=== PATIENT | female | born 1955 | race Caucasian/White ===

== ENCOUNTER → 2016-12-25 | Outpatient (CLI) | payer BC, OTHER ==
[~2016-12-25] MED LIST: CETI10TA10 PO; DIPH25TA24 PO; TYL325X PO
--- NOTE | 2016-12-26 13:25 | MAMMOGRAPHY REPORT ---
BILATERAL DIGITAL SCREENING MAMMOGRAM WITH CAD: 12/25/2016 TECHNIQUE: Current study was also evaluated with a Computer Aided Detection (CAD) system. Bilatera l CC and MLO views were obtained. COMPARISON: Comparison is made to exams dated: 12/20/2015 mammogram, 12/14/2014 mammogram, 06/10/2012 mammogram, 06/05/2011 mammogram, 06/22/2013 mammogram, and 05/30/2010 mammogram - [facility]. BREAST COMPOSITION: The tissue of both breasts is heterogeneously dense, which may obscure small ma sses. FINDINGS: No suspicious masses, calcifications, or areas of architectural distortion are noted in e ither breast. There has been no significant interval change compared to prior exams. Scattered bilat eral benign-appearing calcifications are not significantly changed. IMPRESSION: ACR BI-RADS CATEGORY 2: BENIGN There is no mammographic evidence of malignancy. A 1 year screening mammogram is recommended. The p atient will receive written notification of the results. Approximately 10% of breast cancers are not detected with mammography. A negative mammographic repor t should not delay biopsy if a clinically suggestive mass is present. Allyn Del Toro M.D. ah/:12/26/2016 07:39:36 Construction Estimator: Tata MARTINEZ(Pravin)(Jovany), [facility] letter sent: Normal 1/2 BI-RADS Code: ACR BI-RADS Category 2: Benign
== END | disposition home or self-care (01) ==
LOC: C.MAMM 17:08
PROVIDERS: ATTEND Obstetrics & Gynecology
DX: Z12.31 Encounter for screening mammogram for malignant neoplasm of breast (principal)

== ENCOUNTER → 2017-07-16 | Outpatient (CLI) | payer BC, OTHER | END | disposition home or self-care (01) | LOC: C.PAPS 11:01 | PROVIDERS: ATTEND Obstetrics & Gynecology | DX: Z01.419 Encounter for gynecological examination (general) (routine) without abnormal findings (principal); Z78.0 Asymptomatic menopausal state ==

== ENCOUNTER → 2018-01-07 | Outpatient (CLI) | payer BC, OTHER ==
--- NOTE | 2018-01-08 15:14 | MAMMOGRAPHY REPORT ---
BILATERAL DIGITAL SCREENING MAMMOGRAM TOMOSYNTHESIS WITH CAD: 01/07/2018 CLINICAL HISTORY: Routine screening. Patient has no complaints. TECHNIQUE: Breast tomosynthesis in addition to standard 2D mammography was performed. Current study was also evaluated with a Computer Aided Detection (CAD) system. COMPARISON: Comparison is made to exams dated: 12/25/2016 mammogram, 12/20/2015 mammogram, 12/14/2014 ma mmogram, 06/22/2013 mammogram, 06/10/2012 mammogram, and 06/05/2011 mammogram - [facility] nter. BREAST COMPOSITION: The tissue of both breasts is heterogeneously dense, which may obscure small mas ses. FINDINGS: There is a partially circumscribed and partially obscured 10 mm mass seen within the left m edial breast at approximately 9 to 10:00, for which ultrasound and possible additional spot compressi on views are recommended for further evaluation. This may represent a cyst. The remainder of both breasts are stable compared to prior exams, without suspicious masses, calcific ations, or areas of architectural distortion noted. Scattered bilateral benign-appearing calcificati ons are not significantly changed. IMPRESSION: ACR BI-RADS CATEGORY 0: INCOMPLETE EVALUATION: NEED ADDITIONAL IMAGING EVALUATION Left breast mass, for which additional imaging evaluation is recommended. The patient will be called to schedule an appointment. Approximately 10% of breast cancers are not detected with mammography. A negative mammographic report should not delay biopsy if a clinically suggestive mass is present. Allyn Del Toro M.D. /:01/08/2018 14:42:22 Regional Cra: Kathy MARTINEZ(Pravin)(M), [facility] letter sent: Addl Imaging 0 BI-RADS Code: ACR BI-RADS Category 0: Incomplete Evaluation: Need Additional Imaging Evaluation
== END | disposition home or self-care (01) ==
LOC: C.MAMM 17:01
PROVIDERS: ATTEND Obstetrics & Gynecology
DX: Z12.31 Encounter for screening mammogram for malignant neoplasm of breast (principal); N63.20 Unspecified lump in the left breast, unspecified quadrant

== ENCOUNTER → 2018-01-21 | Outpatient (CLI) | payer BC, OTHER ==
--- NOTE | 2018-01-22 07:51 | MAMMOGRAPHY REPORT ---
ULTRASOUND OF LEFT BREAST: 01/21/2018 CLINICAL HISTORY: Callback from screening mammography for a 10 mm partially circumscribed mass in the medial left breast. Family history of breast cancer = sister. COMPARISON: Comparison is made to exams dated: 01/07/2018 mammogram, 12/25/2016 mammogram, 12/20/2015 ma mmogram, 12/14/2014 mammogram, 06/22/2013 mammogram, and 06/10/2012 mammogram - [facility] nter. FINDINGS: Real-time high resolution sonographic evaluation was performed in the left breast, with par ticular attention to the 9:0010:00 left breast in the area of partially circumscribed and obscured 1 0 mm mass. In the 10:00 left breast, 1 cm from the nipple, there is an oval parallel circumscribed h ypoechoic mass measuring 8.5 x 4.0 x 8.1 mm. This likely corresponds with the circumscribed mammogra phic mass and could represent a benign solid mass such as a fibroadenoma or a complicated cyst. Inci dental note is made of an anechoic benign simple cyst in the 10:00 left breast, 2 cm from the nipple, measuring 3.8 mm. There is an isoechoic mass with indistinct borders versus a prominent fat lobule in the 1:00 left breast, 1 cm from the nipple, measuring 9.5 x 4.1 x 6.1 mm, and another hypoechoic s olid versus cystic round mass in the 3:00 periareolar left breast measuring 4.6 x 3.8 x 6.3 mm. Give n the solid nature of the masses identified in the 1:00 and 3:00 periareolar left breast, definitive characterization with ultrasound-guided core needle biopsy is recommended. Pending benign pathology results, the oval circumscribed subcentimeter mass in the 10:00 left breast could be followed in 6 mo nths to ensure stability. IMPRESSION: ACR BI-RADS CATEGORY 4: SUSPICIOUS - FOLLOW-UP RECOMMENDED 1. Ultrasound-guided core biopsy is recommended for a solid 9.5 mm mass versus prominent fat lobule in the 1:00 left breast, 1 cm from the nipple, and for a hypoechoic 6 mm mass in the 3:00 periareolar left breast. 2. Pending benign pathology results, recommend a follow-up left diagnostic tomosynthesis mammogram a nd repeat targeted ultrasound in the 10:00 axis to ensure stability of an oval circumscribed 8.5 mm m ass which could represent a complicated cyst or benign fibroadenoma. These results and recommendations were discussed with the patient at the time of the exam. She tenta tively scheduled the left breast biopsies prior to leaving the department. Leena Pérez M.D. ay/:01/21/2018 11:58:25 Superintendent Construction: Dr. Leena Pérez, [facility] letter sent: Abnormal 4/5 BI-RADS Code: ACR BI-RADS Category 4: Suspicious
== END | disposition home or self-care (01) ==
LOC: C.MAMM 08:22
PROVIDERS: ATTEND Obstetrics & Gynecology
DX: N63.20 Unspecified lump in the left breast, unspecified quadrant (principal)

== ENCOUNTER → 2018-01-26 | Outpatient (CLI) | payer BC, OTHER ==
--- NOTE | 2018-01-26 13:22 | Discharge Instructions ---
Discharge Instructions Procedure Procedure Date: Jan 26, 2018. Reason for visit: Left Masses. Discharge Discharge Date: Jan 26, 2018. Discharge Diagnosis: post left breast ultrasound guided core biopsy x 2 Instructions Activity Recommendations: Additional Limitations (see below) Return to School/Work: no limitations Recommended Home Diet: No Limitations Provider Instructions: ACTIVITY RECOMMENDATIONS: * No lifting, pushing, pulling or exercising the affected side for three days. RETURN TO SCHOOL/WORK: * You may return to work/school after the procedure, but do not perform any strenuous activities for 24 to 48 hours. MEDICATIONS: * Tylenol (two 325 mg) every four to six hours if needed for mild pain (if not allergic to Tylenol). DIET: * Resume previous diet. SPECIAL CARE INSTRUCTIONS: * Keep biopsy site dry for 24 hours. May shower after 24 hours, but do not soak (bathe) incision. * May remove Tegaderm (plastic patch) tomorrow AFTER showering. * Leave the steri-strips on for one week. Allow the steri-strips to fall off by themselves. If not off after one week, you may remove them. You may place a Bandaid crosswise over the strips, if desired. * Apply ice 10 minutes on and 10 minutes off as needed. * Wear a bra at bedtime to sleep more comfortably for 2-3 days. * Your referring physician should have the results after approximately 5 to 7 business days. * Call for unusual bleeding, fever, drainage, etc or if you have any questions call [phone] during normal business hours or after hours call Dr Pérez, . FOLLOW UP VISIT: Follow-up with Referring Physician as scheduled. Allergies Coded Allergies: Cat Dander (Verified Allergy, Unknown, -, 04/25/14) Kateryna Holt Recommendations: Call your doctor if: * Temperature above 101 degrees * Pain not relieved by pain medicine ordered * There is increased drainage or redness from any incision * You have any unanswered questions or concerns. Your Doctors Instructions noted above were prepared by provider Leena Pérez. Patient Signature Section: Patient Instructions Signature Page Chetna Sun Patient (or Guardian) Signature/Date: I have read and understand the instructions given to me by my caregivers. Caregiver/RN/Doctor Signature/Date: The above-named patient and/or guardian has received patient instructions on this date. + Original Patient Signature Page (only) stays with chart. Please make copy for patient.
--- NOTE | 2018-01-27 07:46 | MAMMOGRAPHY REPORT ---
MULTIPLE ULTRASOUND GUIDED BIOPSIES LEFT BREAST: 01/26/2018 CLINICAL HISTORY: Indeterminate 9.5 mm isoechoic mass in the 1:00 left breast and 6 mm hypoechoic mas s in the 3:00 periareolar left breast. Patient presents for ultrasound-guided core biopsy 2. COMPARISON: Comparison is made to exams dated: 01/07/2018 mammogram, 01/21/2018 ultrasound, and 016 mammogram - [facility]. PATIENT CONSENT: The procedure, risks and benefits were discussed with the patient and informed conse nt was obtained both verbally and in writing. Specific risks to this procedure include: bleeding, in fection, puncture of adjacent structure, nontarget biopsy, sampling error, pain, metal allergy and me dication reaction. PROCEDURE DESCRIPTION: A time out was performed and the left breast was agreed as the site of biopsy . First repeat targeted ultrasound was performed in the left breast and the isoechoic 9.5 mm mass in the 1:00 left breast was again identified and targeted for biopsy. The skin was prepped and draped in the usual sterile fashion. Subcutaneous and intraparenchymal 1% buffered lidocaine, with and with out epinephrine, was administered as local anesthesia. A skin incision was made. Through the incisio n, for samples were taken with a 14 gauge Achieve biopsy device. A ribbon shaped metallic marker was placed at the biopsy site. Hemostasis was achieved after manual compression. The patient tolerated th e procedure well and there was no immediate complication. Second repeat targeted ultrasound was performed in the 3:00 periareolar left breast in the 6 mm hypoe choic mass was identified and targeted for biopsy. Additional 1% buffered lidocaine with and without epinephrine was administered as local anesthesia. A small skin incision was made. Through the inci brian, 5 core biopsy samples were obtained with a 14-gauge achieve biopsy device. A wing-shaped metal lic biopsy marker clip was placed at the site of this biopsy. Hemostasis was achieved after several minutes of manual compression. The patient tolerated the procedure well and there was no immediate c omplication. All of the samples were sent to the pathology department in appropriately labeled containers. Post procedure left CC and ML tomosynthesis images were obtained. No significant postbiopsy hematoma is seen in the left breast at 1:00 or 3:00. New metallic biopsy marker clips are seen in the 1:00 and 3:00/retroareolar left breast, at the sites of the biopsied masses identified on ultrasound. Pendin g benign pathology results, a short interval follow-up left diagnostic tomosynthesis mammogram and re peat targeted ultrasound is recommended to ensure stability of another benign-appearing circumscribed mass in the upper inner/10:00 left breast. IMPRESSION: ULTRASOUND GUIDED BIOPSY Status post ultrasound-guided core needle biopsy of indeterminate subcentimeter masses in the 1:00 an d 3:00 axes of the left breast, with biopsy markers placed at each site. Pending benign pathology results, a short interval follow-up left diagnostic tomosynthesis mammogram and repeat targeted ultrasound is recommended to ensure stability of another benign-appearing circums cribed mass in the upper inner/10:00 left breast. The patient will receive notification of the biopsy results from her referring physician. Leena Pérez M.D. ay/:01/26/2018 14:48:24 Junior Media Buyer: Kathy MARTINEZ(Pravin)(Jovany), [facility]
--- NOTE | 2018-01-27 07:46 | MAMMOGRAPHY REPORT ---
MULTIPLE ULTRASOUND GUIDED BIOPSIES LEFT BREAST: 01/26/2018 CLINICAL HISTORY: Indeterminate 9.5 mm isoechoic mass in the 1:00 left breast and 6 mm hypoechoic mas s in the 3:00 periareolar left breast. Patient presents for ultrasound-guided core biopsy 2. Please refer to the report from left breast ultrasound-guided core biopsy performed at the same time for full detail. IMPRESSION: ULTRASOUND GUIDED BIOPSY Please refer to the report from left breast ultrasound-guided core biopsy performed at the same time for full detail. Leena Pérez M.D. ay/:01/26/2018 13:26:05 Pipeline Integrity Engineer: Kathy MARTINEZ(Pravin)(M), [facility]
--- NOTE | 2018-01-27 07:48 | MAMMOGRAPHY REPORT ---
UNILATERAL LEFT DIGITAL DIAGNOSTIC MAMMOGRAM TOMOSYNTHESIS: 01/26/2018 CLINICAL HISTORY: Status post ultrasound-guided core biopsy of an indeterminate isoechoic mass in the 1:00 left breast and hypoechoic mass in the 3:00 periareolar/retroareolar left breast. Please refer to the report from left breast ultrasound-guided core biopsy performed at the same time for full detail. IMPRESSION: POST PROCEDURE IMAGING FOR MARKER PLACEMENT Please refer to the report from left breast ultrasound-guided core biopsy performed at the same time for full detail. Approximately 10% of breast cancers are not detected with mammography. A negative mammographic report should not delay biopsy if a clinically suggestive mass is present. Leena Pérez M.D. ay/:01/26/2018 13:24:21 Manager New Product: Kathy CANNON)(M), [facility] BI-RADS Code: Post Procedure Imaging For Marker Placement
== END | disposition home or self-care (01) ==
LOC: C.MAMM 12:24
PROVIDERS: ATTEND Obstetrics & Gynecology
DX: R92.8 Other abnormal and inconclusive findings on diagnostic imaging of breast (principal); N63.20 Unspecified lump in the left breast, unspecified quadrant; D24.2 Benign neoplasm of left breast

== ENCOUNTER → 2018-02-24 | Outpatient (CLI) | payer BC, OTHER ==
[~2018-02-24] MED LIST changes: -CETI10TA10 PO; -DIPH25TA24 PO; +LEVO5TAB2 PO; +MONT1TAB3 PO; -TYL325X PO
[2018-02-24 14:46] LABS: BASO % 0.3 %; BASO ABS # 0.01 K/uL (0-0.2); EOS % 1.3 %; EOS ABS # 0.05 K/uL (0-0.5); HEMATOCRIT 39.9 % (37-47); HEMOGLOBIN 13.6 g/dL (12.0-16.0); LYMPH % 36.4 %; LYMPH ABS # 1.38 K/uL (1.2-3.4); MEAN CORPUSCULAR HEMOGLOBIN 32.4 pg (25-34); MEAN CORPUSCULAR HGB CONC 34.1 g/dl (32-36); MEAN PLATELET VOLUME 9.8 fL (7.4-10.4); MONO % 6.9 %; MONO ABS # 0.26 K/uL (0.11-0.59); NEUT % 55.1 %; NEUT ABS # 2.09 K/uL (1.4-6.5); PLATELET COUNT 251 K/uL (130-400); RED CELL DISTRIBUTION WIDTH SD 45.3 fL (36.4-46.3); WHITE BLOOD COUNT 3.79 K/uL (4.8-10.8)
[2018-02-24 15:03] LABS: BLOOD UREA NITROGEN 11 mg/dl (7-18); CALCIUM 9.9 mg/dl (8.5-10.1); CARBON DIOXIDE 29 mmol/L (21-32); CREATININE 0.67 mg/dl (0.60-1.20); GLUCOSE 88 mg/dl (70-99); POTASSIUM 4.1 mmol/L (3.5-5.1); SODIUM 139 mmol/L (136-145)
== END | disposition home or self-care (01) ==
LOC: C.CPL 14:00
PROVIDERS: ATTEND Surgery
DX: Z01.818 Encounter for other preprocedural examination (principal); R92.8 Other abnormal and inconclusive findings on diagnostic imaging of breast